=== PATIENT | male | born 1970 | race Caucasian/White ===

== ENCOUNTER 2018-02-01 18:56 | Observation (INO) | payer OTHER ==
[~2018-02-01] VITALS: Ht 175.3 cm; Wt 95.3 kg
[~2018-02-01 18:56] MED LIST: ATORVASTATIN CA80 M1 PO; AUGMENTIN 875-1 EACH PO; BAYER CHEWABLE81 MG PO; BRILINTA90 M1 PO; CIPROFLOXACIN1 EACH; CYCLOBENZAPRINE10 M1 PO; IBUPROFEN800 M1 PO; KEFLEX500 M1 PO; METOPROLOL SUCC50 M2 PO; NASONEX17 GM NASB
--- NOTE | 2018-02-01 19:11 | ED CARDIAC/CP/PALPITATIONS ---
History of Present Illness General Chief Complaint: Chest Pain Stated Complaint: NECK AND CHEST PAIN Source: patient Exam Limitations: no limitations Vital Signs & Intake/Output Vital Signs & Intake/Output Vital Signs Date Time Temp Pulse Resp B/P B/P Pulse O2 O2 Flow FiO2 Mean Ox Delivery Rate 02/01 2050 64 18 142/98 97 Room Air Room Air 02/01 1903 98.3 72 18 116/74 97 Room Air Allergies Coded Allergies: NO KNOWN ALLERGIES (06/25/16) Reconcile Medications Amoxicillin/Potassium Clav (Augmentin 875-125 Tablet) 875 MG-125 MG TABLET 1 TAB PO BID otitis media Aspirin (Bari Chewable Aspirin) 81 MG TAB.CHEW 1 TAB PO DAILY HEART ( Reported) Atorvastatin Calcium 80 MG TABLET 1 TAB PO DAILY CHOLESTEROL (Reported) Ciprofloxacin HCl 0.2 % [place] EAR (Reported) Cyclobenzaprine HCl 10 MG TABLET 1 TAB PO TID PRN muscle strain Metoprolol Succinate 50 MG TAB.ER.24H 1 TAB PO DAILY HEART (Reported) Mometasone Furoate (Nasonex) 50 MCG SPRAY.PUMP 2 SPRAY NASB DAILY otitis Ticagrelor (Brilinta) 90 MG TABLET 1 TAB PO BID BLOOD THINNER (Reported) Triage Note: 47 YO MALE TO TRIAGE C/O PAIN ACROSS BILATERAL UPPER CHEST ON/OFF SINCE YESTERDAY. STATES HX OF [place]. STATES +SOB, +NAUSEA. DENIES ABD PAIN. EKG COMPELTED ON ARRIVAL. Triage Nurses Notes Reviewed? yes Onset: Gradual Duration: day(s): Timing: recent history Quality/Severity: moderate Location: central Radiation: no radiation Activities at Onset: none Prior Chest Pain/Card Workup: cardiac cath, heart attack HPI: 47 YO GENTLEMAN h/o [place] 16 months ago, several stents at [facility], presents with intermittent chest pain. He notes, "I had my first episode yesterday morning, lasted about 20 minutes.... and then this evening, I had several episodes... maybe each would last 3-4 minutes.... I felt it in my jaw." At it's worse: 03/14. At present: 010 He notes no dyspnea, diaphoresis, shortness of breath, syncopal symptoms. Past History Travel History Traveled to [place] past 21 day No Medical History Any Pertinent Medical History? see below for history Neurological: NONE EENT: NONE Cardiovascular: hyperlipidemia, myocardial infarction Respiratory: NONE Gastrointestinal: NONE Hepatic: NONE Renal: NONE Musculoskeletal: NONE Psychiatric: NONE Endocrine: NONE Blood Disorders: NONE Cancer(s): NONE COPYMAN/Reproductive: NONE Tetanus Vaccine: 06/25/16 Surgical History Surgical History: cardiac stents Psychosocial History What is your primary language Khmer Tobacco Use: Never used Family History Hx Contributory? No Review of Systems Review of Systems Constitutional: Reports: no symptoms. EENTM: Reports: no symptoms. Respiratory: Reports: no symptoms. Cardiovascular: Reports: no symptoms. GI: Reports: no symptoms. Genitourinary: Reports: no symptoms. Musculoskeletal: Reports: no symptoms. Skin: Reports: no symptoms. Neurological/Psychological: Reports: no symptoms. Hematologic/Endocrine: Reports: no symptoms. Immunologic/Allergic: Reports: no symptoms. All Other Systems: Reviewed and Negative Physical Exam Physical Exam General Appearance: well developed/nourished, no apparent distress Head: atraumatic, normal appearance Eyes: Bilateral: normal appearance. Ears, Nose, Throat: normal pharynx, normal ENT inspection Neck: normal inspection, supple, full range of motion Respiratory: normal breath sounds, no respiratory distress, quiet respiration, lungs clear Cardiovascular: regular rate/rhythm Gastrointestinal: normal bowel sounds, soft, non-tender, no organomegaly Back: normal inspection, normal range of motion Extremities: normal inspection, normal capillary refill, normal range of motion, no edema Neurologic/Psych: no motor/sensory deficits, awake, alert, oriented x 3 Skin: intact, normal color, warm/dry Core Measures ACS in differential dx? Yes No ASA d/t aspirin given CVA/TIA Diagnosis No Sepsis Present: No Sepsis Focused Exam Completed? No Progress Differential Diagnosis: AMI, unstable angina Plan of Care: Orders Procedure Date/time Status TROPONIN LEVEL 02/02 1912 Complete PARTIAL THROMBOPLASTIN TIME 02/02 1912 Complete PROTHROMBIN TIME 02/02 1912 Complete LIPASE 02/02 1912 Complete HEPATIC FUNCTION PANEL 02/02 1912 Complete D-DIMER 02/02 1912 Complete CBC WITHOUT DIFFERENTIAL 02/02 1912 Complete BASIC METABOLIC PANEL 02/02 1912 Complete AMYLASE 02/02 1912 Complete EKG 02/01 185 Active Current Medications Sig/Shin Start time Last Medication Dose Stop Time Status Admin Acetaminophen 650 MG ONCE ONE 02/01 2045 CAN (Tylenol) 02/01 2046 Laboratory Tests 03/30/18 1938: Anion Gap 11, Estimated GFR > 60, BUN/Creatinine Ratio 17.5, Glucose 100 H, Calcium 9.4, Total Bilirubin 0.6, Direct Bilirubin 0.4, AST 31, ALT 53, Alkaline Phosphatase 87, Troponin I 0.04, Total Protein 7.8, Albumin 4.4, Amylase 36, Lipase 73, PT 11.9, INR 1.09, APTT 29, D-Dimer High Sensitivty < 200, CBC w Diff NO MAN DIFF REQ, RBC 5.11, MCV 88.7, MCH 29.9, MCHC 33.7, RDW 13.8, MPV 7.2 L, Gran % 56.1, Lymphocytes % 30.5, Monocytes % 11.4 H, Eosinophils % 1.4, Basophils % 0.6, Absolute Granulocytes 3.7, Absolute Lymphocytes 2.0, Absolute Monocytes 0.8 H, Absolute Eosinophils 0.1, Absolute Basophils 0 Diagnostic Imaging: Viewed by Me: Radiology Read. Discussed w/RAD: Radiology Read. CXR Impression: PATIENT: ESTEFANÍA GALLAGHER PRESENT AGE : 47 PATIENT ACCOUNT NO: [id number] : 70 LOCATION: [facility] ORDERING PHYSICIAN: [place] MD SERVICE DATE: 02/01/18 EXAM TYPE: RAD - XRY-PORTABLE CHEST XRAY EXAMINATION: XR PORTABLE CHEST CLINICAL INFORMATION: Chest pain. COMPARISON: No relevant prior imaging. TECHNIQUE: Portable frontal view of the chest was obtained. FINDINGS: Lungs are well- expanded. There is no focal consolidative disease, pleural effusion, or pneumothorax. The cardiac silhouette and upper mediastinal contours are normal. No acute osseous finding. IMPRESSION: Unremarkable chest radiograph. No consolidative disease or effusion. DICTATED BY: Germán Jang MD DATE/TIME DICTATED:02/01/181958 AUTOMATIC CLIPPER:LAUREN DATE/TIME TRANSCRIBED:1958 CONFIDENTIAL, DO NOT COPY WITHOUT APPROPRIATE AUTHORIZATION. < Electronically signed in Other Vendor System> SIGNED BY: Germán Jang MD 02/01/182002 Initial ED EKG: normal axis, normal intervals, normal p-waves, normal QRS complex, normal sinus rhythm Departure Departure Disposition: STILL A PATIENT Condition: Stable Clinical Impression Primary Impression: Chest pain Referrals: Unknown (PCP/Family) Departure Forms: Customer Survey General Discharge Information Comments 02/01/18, 8:50.... discussed with dr. elias. pt with prior [place], s/p stents, merits observation for rule out and cards eval. [facility] Non-ED OBS Care Area Rationale for Observation: My rational for observation is as follows . pt with chest pain, prior history of [place] w/ stents, chest pain free in ED... merits monitoring, serial troponins/ekg and cards eval in AM. Critical Care Note Critical Care Note Critical Care Time: non-applicable
[2018-02-01 19:47] LABS: ABSOLUTE BASOPHIL COUNT 0 /CUMM (0.0-0.2); ABSOLUTE EOSINOPHIL COUNT 0.1 /CUMM (0.0-0.7); ABSOLUTE GRANULOCYTE CT 3.7 /CUMM (1.4-6.5); ABSOLUTE MONOCYTE COUNT 0.8 /CUMM (0.10-0.60); BASOPHIL % 0.6 % (0.0-2.0); EOSINOPHIL % 1.4 % (0-5); GRANULOCYTE % 56.1 % (42.2-75.2); HEMATOCRIT 45.4 % (42-52); MEAN CORPUSCULAR HGB 29.9 PG (27.0-31.0); MEAN CORPUSCULAR HGB CONC 33.7 G/DL (33.0-37.0); MEAN CORPUSCULAR VOLUME 88.7 FL (80.0-94.0); MEAN PLATELET VOLUME 7.2 FL (7.4-10.4); PLATELET COUNT 239 /CUMM (130-400); RBC DISTRIBUTION WIDTH 13.8 % (11.5-14.5); RED BLOOD CELL CT 5.11 /CUMM (4.70-6.10); WHITE BLOOD CELL COUNT 6.7 /CUMM (4.8-10.8)
[2018-02-01 19:55] LABS: PT 11.9 SEC (9.4-12.5); PTT 29 SEC (25-37)
--- NOTE | 2018-02-01 20:03 | RADIOLOGY REPORT ---
EXAMINATION: XR PORTABLE CHEST CLINICAL INFORMATION: Chest pain. COMPARISON: No relevant prior imaging. TECHNIQUE: Portable frontal view of the chest was obtained. FINDINGS: Lungs are well-expanded. There is no focal consolidative disease, pleural effusion, or pneumothorax. The cardiac silhouette and upper mediastinal contours are normal. No acute osseous finding. IMPRESSION: Unremarkable chest radiograph. No consolidative disease or effusion.
[2018-02-01] MEDS ORDERED: NIZORAL120 ML TOP (21:05)
[2018-02-01] MEDS ORDERED: ATORVASTATIN CA40 M1 PO (21:05)
--- NOTE | 2018-02-01 22:13 | History & Physical ---
Daniel PHILIPPE,Lilli 02/01/18 2212: General Information and HPI MD Statement: I have seen and personally examined ESTEFANÍA GALLAGHER and documented this H&P. The patient is a 47 year old M who presented with a patient stated chief complaint of [Chest pain]. Source of Information: patient Exam Limitations: no limitations History of Present Illness: 47 years old male with PMH of HLD , [place] S/P cardiac stent on 10/20 at [facility] comes in complaining of chest discomfort. 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 He also reported feeling tired, associated with nausea, mild shortness of breath and cough. At first he thought he is having an anxiety attack but later on decided to come to the hospital because of his cardiac history. Patient mentioned that he had been undergoing many stressors recently since hebought a new house . denies dizziness, palpitation, lightheadedness, vomiting, diarrhea, runny nose or fever Of note patient has history of MO on 10/20 when he presented to [facility] and was transferred to [facility] when he got 2 stents (as per the patient he had over 90% occlusion in two coronary arteries and 60% in the third cornonary artery) His scoring machine operator is Dr. Burden, he last see him on December 2017 when he had an echo, no changes to his medication was recommended during that visit. The patient is an ex-smoker, used to smoke 1.5 packs for 30 years, he quit after the stent placement back on October 2016. Occasional alcohol use, denies any recreational drug use, reports being compliant with his home meds ED course: Vital signs on admission: Blood pressure 142/98, pulse 64, respiratory 18, bedside pulse ox 97 on room air Labs on admission: CBC was normal, PT was normal with sodium 142, potassium 3.9, BUN 14, creatinine 0.8, glucose 100, calcium 9.4, AST 31, AST 53, troponin 0.04, PT 11.9, INR 1.09, d-dimer less than 200 Chest x-ray:Unremarkable chest radiograph. No consolidative disease or effusion. Allergies/Medications Allergies: Coded Allergies: NO KNOWN ALLERGIES (06/25/16) Home Med list Aspirin (Bari Chewable Aspirin) 81 MG TAB.CHEW 1 TAB PO DAILY HEART ( Reported) Atorvastatin Calcium 40 MG TABLET 1 TAB PO DAILY CHOLESTEROL (Reported) Ketoconazole (Nizoral) 2 % SHAMPOO 1 HENRIQUE TOP Sunday SCALP ( Reported) Metoprolol Succinate 50 MG TAB.ER.24H 1 TAB PO DAILY HEART (Reported) Ticagrelor (Brilinta) 90 MG TABLET 1 TAB PO BID BLOOD THINNER (Reported) Past History Travel History Traveled to [place] past 21 day No Medical History Blood Transfusion Hx: No Neurological: NONE EENT: NONE Cardiovascular: hyperlipidemia, myocardial infarction Respiratory: NONE Gastrointestinal: NONE Hepatic: NONE Renal: NONE Musculoskeletal: NONE Psychiatric: NONE Endocrine: NONE Blood Disorders: NONE Cancer(s): NONE CLIENT LIAISON/Reproductive: NONE Tetanus Vaccine: 06/25/16 Surgical History Surgical History: cardiac stents Past Family/Social History Family History Relations & Conditions if any Relation not specified for: *No pertinent family history Psychosocial History Smoking Status: Former Smoker Review of Systems Review of Systems Constitutional: Reports: malaise, weakness. Denies: chills, diaphoresis, fever. Cardiovascular: Reports: chest pain. Denies: edema, orthopena, palpitations, peripheral edema, syncope. Respiratory: Reports: cough. Denies: hemoptysis, orthopnea, short of breath, sputum production, stridor. GI: Reports: nausea. Denies: abdominal pain, bloating, constipation, diarrhea, distention, bloody stool, changes in stool, vomiting. Genitourinary: Denies: no symptoms. Musculoskeletal: Denies: no symptoms. Skin: Denies: no symptoms. Neurological/Psychological: Denies: no symptoms. Exam & Diagnostic Data Last 24 Hrs of Vital Signs/I&O Vital Signs Date Time Temp Pulse Resp B/P B/P Pulse O2 O2 Flow FiO2 Mean Ox Delivery Rate 02/01 2050 64 18 142/98 97 Room Air Room Air 02/01 1903 98.3 72 18 116/74 97 Room Air Physical Exam General Appearance Alert, Oriented X3, Cooperative, No Acute Distress HEENT Atraumatic, PERRLA, EOMI, Mucous Membr. moist/pink Neck Supple, No JVD Cardiovascular Normal S1, Normal S2, No Murmurs, no focal ternderness on chest palpation Lungs Clear to Auscultation Abdomen Normal Bowel Sounds, Soft, No Tenderness Neurological Normal Speech, Strength at 5/5 X4 Ext, Normal Tone, Sensation Intact, Cranial Nerves 3-12 NL Extremities No Clubbing, No Cyanosis, No Edema Vascular Normal Pulses Last 24 Hrs of Labs/[place]: Laboratory Tests 02/01/18 1938: Anion Gap 11, Estimated GFR > 60, BUN/Creatinine Ratio 17.5, Glucose 100 H, Calcium 9.4, Total Bilirubin 0.6, Direct Bilirubin 0.4, AST 31, ALT 53, Alkaline Phosphatase 87, Troponin I 0.04, Total Protein 7.8, Albumin 4.4, Amylase 36, Lipase 73, PT 11.9, INR 1.09, APTT 29, D-Dimer High Sensitivty < 200, CBC w Diff NO MAN DIFF REQ, RBC 5.11, MCV 88.7, MCH 29.9, MCHC 33.7, RDW 13.8, MPV 7.2 L, Gran % 56.1, Lymphocytes % 30.5, Monocytes % 11.4 H, Eosinophils % 1.4, Basophils % 0.6, Absolute Granulocytes 3.7, Absolute Lymphocytes 2.0, Absolute Monocytes 0.8 H, Absolute Eosinophils 0.1, Absolute Basophils 0 02/01/18 0100: Troponin I Cancelled Diagnostic Data EKG Results Normal sinus rhythm, heart rate 69, QTC of 416, SC 148, no STT wave changes CXR Results Unremarkable chest radiograph. No consolidative disease or effusion. Assessment/Plan Assessment: 47 years old male with PMH of HLD , MO S/P cardiac stent on 10/20 at [facility] comes in complaining of chest discomfort. 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 Problem list: History of MO status post 2 stent Hyperlipidemia Observe on telemetry Rule out ACS with serial troponins and EKG Vitals every shift Continue home meds including atorvastatin 80 mg p.o. daily Metoprolol 25 mg twice daily Aspirin 81 p.o. daily starting tomorrow, patient received aspirin 325 in the ED Continue Brillinta 90 mg p.o. twice daily Cardiology consult appreciated Obtain records from [facility] and his scoring machine operator in the a.m. Patient is full code Heart healthy diet DVT prophylaxis with subcutaneous heparin Core Measures/Misc (07/22) Acute Coronary Syndrome ACS Diagnosis: Yes Congestive Heart Failure Congestive Heart Failure Diagnosis No Cerebrovascular Accident CVA/TIA Diagnosis: No VTE (View Protocol) VTE Risk Factors Age>40 No Mechanical VTE Prophylaxis d/t N/A MechProphylax Ordered No VTE Pharm Prophylaxis d/t NA PharmProphylax ordered Sepsis (View protocol) Sepsis Present: No Dale Kraus MD 02/01/18 2331: Attending MD Review Statement Attending Statement Attending MD Statement: examined this patient, discuss w/resident/PA/SENIOR BRANCH MANAGER, agreed w/resident/PA/SENIOR BRANCH MANAGER, discussed with family, reviewed EMR data (avail), discussed with nursing Attending Assessment/Plan: Mr. Gallagher is 47 y/o male of [place] origin who has a history of dyslipidemia, had an acute myocardial infarction status post 2 stents in October 2016 at [facility] comes with complaints of chest uneasiness and discomfort since the evening of the day of presentation. The present symptoms are less in severity compatible acute myocardial infarction he had an similar 2016. Apparently patient had an echocardiogram in December 2017 that that was okay as per the patient. The patient's scoring machine operator is Dr. Burden. Currently he denies any symptoms, doing fine patient was ex smoker has 45-pack- year history. Stopped Smoking after the myocardial infarction. Apparently the patient was told by the scoring machine operator that there were 3 blockages, 2 blockages in the arteries were fixed, however another blockage was on the borderline and the decision was made not to intervene for now. In examination in the ED vitals blood pressure 142/98, heart rate of 64 respiratory rate of 18 and saturating 97% on room air General Appearance Alert, Oriented X3, Cooperative, No Acute Distress Neck Supple, No JVD Cardiovascular Normal S1, Normal S2, No Murmurs Lungs Clear to Auscultation Abdomen Normal Bowel Sounds, Soft, No Tenderness Neurological no focal neurological deficit Extremities No Clubbing, No Cyanosis, No Edema Vascular Normal Pulses Assessment 1. Chest pain - in the setting of known CAD - s/p 2 stents in Oct 2016. EKG and initial cardiac enzymes are unremarkable 2. Dyslipidemia Plan 1. Will be a telemetry observation patient. Obtain records from [facility] including any recent stress test, also the recent echocardiogram from Dr. Burden's office Cardiology consulted. Trend serial cardiac enzymes and EKG's Continue with aspirin, brillinta, beta arsenio DVT prophylaxis - Heparin SC tid Savage Riley MD,Virgilio 02/02/18 0008: Assessment/Plan As Ranked By This Provider Problem List: 1. Chest pain Resident Review Statement Resident Statement: examined this patient, discussed with agriculture intern, agreed with agriculture intern, discussed with family, reviewed EMR data (avail) Other Findings: 47-year-old man with past medical history significant for hypertension, hyperlipidemia, inferior STEMI s/p DIANNA to RCA and LAD 10/18 with residual 70% stenoses in ramus and LCx in 2015, currently on on aspirin 81, ticagrelor 90 BID, atorvastatin 80 and metoprolol XL 50 daily, follows up with Dr. Burden and had an echocardiogram in December 2017 came to emergency department with chief complaint of paroxysmal chest discomfort that stayed for 4 minutes, and feeling tired. Review of system was negative for any sudden acute chest pain, dyspnea on exertion, palpitations, dizziness, nausea, vomiting, diaphoresis. Vitals in emergency department, patient afebrile no tachypnea, no tachycardia, systolic pressure 116-142 and diastolic 74-98, oxygen saturation 97% on room air. Labs significant for no leukocytosis, no significant neck light abnormality, troponin of 0.04, EKG showed sinus rhythm heart rate 66, QTC 416, no axis deviation, d-dimer less than 200. Chest x-ray was negative for any acute cardiopulmonary findings. Patient patient was placed in observation for the management of following problems Chest discomfort rule out ACS Patient's presentation is not typical but given his cardiac history we should have high suspicion of index. Patient has CAD at baseline, but on examination patient does not have any murmur, no signs of congestive heart failure, no acute EKG changes, and negative troponins. HEART score of 2, indicating Moderatly risk for MACE. HAYLEY score of 2. - Hemodynamically stable - Admit to telemetry - Vitals q Shift - Repeat troponins/EKG to rule out ACS - Watch for arrhythmias on telemetry floor - Patient had a recent echocardiogram done in Dr. Burden's office in December 2017 with hold off on ordering another echo - Lipid panel in a.m. -Continue current medications including aspirin, tricagrelor, atorvastatin and metoprolol - No history of cocaine use - Give dinner (Heart Healthy Diet) DVT prophylaxis Patient is on subcutaneous heparin for DVT prophylaxis Diet patient is on heart healthy diet
[2018-02-02 01:21] VITALS: BP 144/98
--- NOTE | 2018-02-02 04:48 | PN-Observation ---
Savage Riley MD,Virgilio 02/02/18 0447: Observation Note Observation Note _ I have personally examined ESTEFANÍA GALLAGHER. him disposition is uncertain at this time. Before a determination can be made, he requires continued observation for the following reasons [rule out ACS]. Assessment/Plan Medical Assessment: 47-year-old man with past medical history significant for hypertension, hyperlipidemia, inferior STEMI s/p DIANNA to RCA and LAD 10/18 with residual 70% stenoses in ramus and LCx in 2015, currently on on aspirin 81, ticagrelor 90 BID, atorvastatin 80 and metoprolol XL 50 daily, follows up with Dr. Burden and had an echocardiogram in December 2017 came to emergency department with chief complaint of paroxysmal chest discomfort that stayed for 4 minutes, and feeling tired. Vitals in emergency department, patient afebrile no tachypnea, no tachycardia, systolic pressure 116-142 and diastolic 74-98, oxygen saturation 97% on room air. Labs significant for no leukocytosis, no significant neck light abnormality, troponin of 0.04 increased to 0.08, EKG showed sinus rhythm heart rate 66, QTC 416, no axis deviation, d-dimer less than 200. Chest x-ray was negative for any acute cardiopulmonary findings. Patient patient was placed in observation for the management of following problems Chest discomfort rule out ACS Patient's presentation is not typical but given his cardiac history we should have high suspicion of index. Patient has CAD at baseline, but on examination patient does not have any murmur, no signs of congestive heart failure, no acute EKG changes, and negative troponins. HEART score of 2, indicating Moderatly risk for MACE. HAYLEY score of 2. No history of cocaine use. Hemodynamically stable. Patient had a recent echocardiogram done in Dr. Burden's office in December 2017 with hold off on ordering another echo. Lipid panel in a.m. Continue current medications including aspirin, tricagrelor, atorvastatin and metoprolol. DVT prophylaxis Patient is on subcutaneous heparin for DVT prophylaxis Diet patient is on heart healthy diet Problem List: 1. Chest pain DVT/Prophylaxis: pharmacological Consulting Request: Consulting Specialty: Cardiology Subjective Follow-up For: Chest discomfort rule out ACS Complaints: no complaints Subjective: Review of system was negative for any sudden acute chest pain, dyspnea on exertion, palpitations, dizziness, nausea, vomiting, diaphoresis. Review of Systems Constitutional: Denies: chills, fever. Cardiovascular: Denies: chest pain, palpitations. Respiratory: Denies: cough, short of breath. Gastrointestinal: Denies: abdominal pain, nausea, vomiting. Genitourinary: Denies: dysuria. Musculoskeletal: Denies: back pain. Objective Last 24 Hrs of Vital Signs/I&O Vital Signs Date Time Temp Pulse Resp B/P B/P Pulse O2 O2 Flow FiO2 Mean Ox Delivery Rate 02/02 0121 98.1 52 20 144/98 97 02/02 0042 135/87 02/02 0029 97.7 81 18 139/104 98 Room Air 02/01 2050 64 18 142/98 97 Room Air Room Air 02/01 1903 98.3 72 18 116/74 97 Room Air Intake & Output 02/02 0800 02/02 0000 02/01 1600 Intake Total Output Total Balance Patient 210 lb Weight Physical Exam General Appearance: Alert, Oriented X3, Cooperative, No Acute Distress HEENT: PERRLA Neck: No JVD Cardiovascular: Regular Rate, Normal S1, Normal S2, no focal ternderness on chest palpation Lungs: Clear to Auscultation, Normal Air Movement Abdomen: Soft, No Tenderness Neurological: Normal Speech, Normal Tone, Sensation Intact Extremities: No Cyanosis, No Edema Vascular: Normal Pulses Current Medications: Current Medications Sig/Shin Start time Last Medication Dose Route Stop Time Status Admin Acetaminophen 650 MG ONCE ONE 02/01 2045 CAN PO 02/01 2046 Aspirin 81 MG DAILY 02/02 1000 AC PO Aspirin 0 .STK-MED ONE 02/01 193 DC PO Aspirin 325 MG ONCE ONE 02/01 1915 DC 02/01 PO 02/01 191 1929 Atorvastatin Calcium 80 MG 1700 02/02 1700 AC PO Atorvastatin Calcium 80 MG DAILY 02/02 0015 DC 02/02 PO 0031 Heparin Sodium 5,000 UNIT Q8 02/01 2351 UNVr (Porcine) SC Metoprolol Tartrate 25 MG BID 02/02 1000 AC PO Ticagrelor 90 MG BID 02/01 2301 AC 02/02 PO 0007 Last 24 Hrs of Labs/Mics: Laboratory Tests 02/02/18 0145: Troponin I 0.08 02/01/18 1938: Anion Gap 11, Estimated GFR > 60, BUN/Creatinine Ratio 17.5, Glucose 100 H, Calcium 9.4, Total Bilirubin 0.6, Direct Bilirubin 0.4, AST 31, ALT 53, Alkaline Phosphatase 87, Troponin I 0.04, Total Protein 7.8, Albumin 4.4, Amylase 36, Lipase 73, PT 11.9, INR 1.09, APTT 29, D-Dimer High Sensitivty < 200, CBC w Diff NO MAN DIFF REQ, RBC 5.11, MCV 88.7, MCH 29.9, MCHC 33.7, RDW 13.8, MPV 7.2 L, Gran % 56.1, Lymphocytes % 30.5, Monocytes % 11.4 H, Eosinophils % 1.4, Basophils % 0.6, Absolute Granulocytes 3.7, Absolute Lymphocytes 2.0, Absolute Monocytes 0.8 H, Absolute Eosinophils 0.1, Absolute Basophils 0 Lexie Nevarez MD 02/02/18 0929: Observation Note Observation Note _ I have personally examined ESTEFANÍA GALLAGHER. him disposition is uncertain at this time. Before a determination can be made, he requires continued observation for the following reasons- suspected ACS or unstable angina. 47-year-old male of [place] descent, ex smoker with hyperlipidemia and hypertension and known CAD status post stents in October 2016. He actively follows with Dr. Burden who is his outpatient otolaryngology rep and takes aspirin, statin, beta arsenio and Brillanta. He is here with this episode of chest pain. He feels like the pain is different and not as severe as his previous [place] however given his obvious risk factors and known CAD he is in observation status to rule out ACS. So far his enzymes have peaked at 0.08 and there is no obvious EKG changes that I could tell. We've called cardiology to see him and the question is risk stratification as an inpatient or outpatient. We'll continue his aspirin and statin beta arsenio and Brillanta and follow closely.
[2018-02-02 06:39] VITALS: BP 110/52
[2018-02-02 08:31] LABS: ABSOLUTE BASOPHIL COUNT 0 /CUMM (0.0-0.2); ABSOLUTE EOSINOPHIL COUNT 0.1 /CUMM (0.0-0.7); ABSOLUTE GRANULOCYTE CT 3.6 /CUMM (1.4-6.5); ABSOLUTE MONOCYTE COUNT 0.8 /CUMM (0.10-0.60); BASOPHIL % 0.6 % (0.0-2.0); EOSINOPHIL % 2.2 % (0-5); GRANULOCYTE % 54.5 % (42.2-75.2); HEMATOCRIT 45.4 % (42-52); MEAN CORPUSCULAR HGB 29.4 PG (27.0-31.0); MEAN CORPUSCULAR HGB CONC 32.9 G/DL (33.0-37.0); MEAN CORPUSCULAR VOLUME 89.3 FL (80.0-94.0); MEAN PLATELET VOLUME 7.3 FL (7.4-10.4); PLATELET COUNT 231 /CUMM (130-400); RBC DISTRIBUTION WIDTH 13.9 % (11.5-14.5); RED BLOOD CELL CT 5.08 /CUMM (4.70-6.10); WHITE BLOOD CELL COUNT 6.6 /CUMM (4.8-10.8)
[2018-02-02 08:43] VITALS: BP 120/60
--- NOTE | 2018-02-02 11:42 | Patient Discharge Instructions ---
Discharge Instructions General Discharge Information You were seen/treated for: Suspected Acute Coronary Syndrome Special Instructions: Please follow up with Dr. Burden in 2-3 days Please follow up with your PCP in 7-10 days Diet Recommended Diet: Heart Healthy Activity Full Activity/No Limits: Yes Acute Coronary Syndrome Inclusion Criteria At DC or during hospital stay patient has or had the following: ACS DIAGNOSIS Yes Discharge Core Measures Meds if any: Prescribed or Continued at Discharge Aspirin Yes Beta-Cam Yes Statin Yes Meds if any: NOT Prescribed or Continued at Discharge Congestive Heart Failure Inclusion Criteria At DC or during hospital stay patient has or had the following: CHF DIAGNOSIS No Discharge Core Measures Meds if any: Prescribed or Continued at Discharge Meds if any: NOT Prescribed or Continued at Discharge Cerebrovascular accident Inclusion Criteria At DC or during hospital stay patient has or had the following: CVA/TIA Diagnosis No Discharge Core Measures Meds if any: Prescribed or Continued at Discharge Meds if any: NOT Prescribed or Continued at Discharge Venous thromboembolism Inclusion Criteria VTE Diagnosis No VTE Type NONE VTE Confirmed by (Test) NONE Discharge Core Measures - Per Current guidelines, there needs to be overlap - treatment for the first 5 days of Warfarin therapy. - If discharged on Warfarin prior to 5 days of - overlap therapy, the patient will need to be - assessed for post discharge needs including - *Post discharge parental anticoagulation - *Warfarin and/or parental anticoagulation education - *Follow up date to check INR post discharge At least 5 days overlap therapy as Inpatient No Meds if any: Prescribed or Continued at Discharge Note: Overlap Therapy is Warfarin and Anticoagulant Meds if any: NOT Prescribed or Continued at Discharge
--- NOTE | 2018-02-02 12:52 | Cons- Cardiology ---
General Information and HPI Consulting Request Date of Consult: 02/02/18 Requested By: Dale Kraus MD Reason for Consult: chest pain Source of Information: patient, old records History of Present Illness: This is a pleasant 47-year-old male with a past medical history coronary artery disease/prior myocardial infarction in 2016 with PCI done at [facility], hyperlipidemia, and prior nicotine use who presented to [facility] with a chief complaint of low level chest discomfort which occurred at rest; was short in duration and not associated with significant shortness of breath or diaphoresis. He feels the symptoms are not similar to the symptoms he experienced prior to his PCI in 2016. Denies any obvious exacerbating or alleviating factors; he has been in his usual state of health with no exertional symptoms or change in exertional tolerance recently. On my interview with him his symptoms had completely resolved. Allergies/Medications Allergies: Coded Allergies: NO KNOWN ALLERGIES (06/25/16) Home Med List: Aspirin (Bari Chewable Aspirin) 81 MG TAB.CHEW 1 TAB PO DAILY HEART ( Reported) Atorvastatin Calcium 40 MG TABLET 1 TAB PO DAILY CHOLESTEROL (Reported) Ketoconazole (Nizoral) 2 % SHAMPOO 1 HENRIQUE TOP Sunday SCALP ( Reported) Metoprolol Succinate 50 MG TAB.ER.24H 1 TAB PO DAILY HEART (Reported) Ticagrelor (Brilinta) 90 MG TABLET 1 TAB PO BID BLOOD THINNER (Reported) Current Medications: Current Medications Sig/Shin Start time Last Medication Dose Route Stop Time Status Admin Acetaminophen 650 MG ONCE ONE 02/01 2045 CAN PO 02/01 2046 Aspirin 81 MG DAILY 02/02 1000 AC 02/02 PO 0843 Aspirin 0 .STK-MED ONE 02/01 1933 DC PO Aspirin 325 MG ONCE ONE 02/01 1915 DC 02/01 PO 02/01 191 1929 Atorvastatin Calcium 80 MG 1700 02/02 1700 AC PO Atorvastatin Calcium 80 MG DAILY 02/02 0015 DC 02/02 PO 0031 Heparin Sodium 5,000 UNIT Q8 02/01 2351 AC (Porcine) SC Metoprolol Tartrate 25 MG BID 02/02 1000 AC 02/02 PO 0843 Ticagrelor 90 MG BID 02/01 2301 AC 02/02 PO 0842 Review of Systems Review of Systems: Review of systems as per HPI. The remainder of a 10 point review of systems was reviewed and was otherwise negative. 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 Surgical History Surgical History: cardiac stents Family History Relations & Conditions If Any: Relation not specified for: *No pertinent family history Psychosocial History Smoking Status: Former Smoker Exam & Diagnostic Data Vital Signs and I&O Vital Signs Date Time Temp Pulse Resp B/P B/P Pulse O2 O2 Flow FiO2 Mean Ox Delivery Rate 02/02 0843 67 120/60 02/02 0639 97.7 63 20 110/52 97 02/02 0121 98.1 52 20 144/98 97 02/02 0042 135/87 02/02 0029 97.7 81 18 139/104 98 Room Air 02/01 2050 64 18 142/98 97 Room Air Room Air 02/01 1903 98.3 72 18 116/74 97 Room Air Intake & Output 02/02 1600 02/02 0800 02/02 0000 02/01 1600 02/01 0800 02/01 0000 Intake Total 400 Output Total Balance 400 Intake, Oral 400 Patient 210 lb 210 lb Weight Physical Exam: General: no apparent distress. Alert. Eyes: No obvious scleral icterus. HEENT: No jugular venous distention or abnormal jugular venous pulsations. Cardiovascular: Normal intensity S1/S2. PMI not grossly displaced. Respiratory: Lungs clear to auscultation bilaterally. Abdomen: Soft, nontender with no guarding or rebound tenderness. Musculoskeletal: No clubbing or cyanosis noted Skin: No obvious rashes or ulcerations. Neurologic: No gross focal deficits noted. Lymph: No gross lymphadenopathy. Labs/[place] Results: Laboratory Tests 02/02 02/02 02/02 0815 0815 0145 Chemistry Sodium (137 - 145 mmol/L) 141 Cancelled Potassium (3.5 - 5.1 mmol/L) 3.8 Cancelled Chloride (98 - 107 mmol/L) 106 Cancelled Carbon Dioxide (22 - 30 mmol/L) 25 Cancelled Anion Gap (5 - 16) 10 Cancelled BUN (9 - 20 mg/dL) 15 Cancelled Creatinine (0.7 - 1.2 mg/dL) 0.7 Cancelled Estimated GFR (>60 ml/min) > 60 BUN/Creatinine Ratio (7 - 25 %) 21.4 Cancelled Troponin I (<0.11 ng/ml) 0.08 0.08 Triglycerides (<150 mg/dL) 265 H Cancelled Cholesterol (< 200 MG/DL) 156 Cancelled LDL Cholesterol, Calc (65 - 129 mg/dL) 81 Cancelled HDL Cholesterol (40 - 60 mg/dL) 22 L Cancelled Cholesterol/HDL Ratio (0.00 - 4.88 %) 7 H Cancelled Hematology CBC w Diff NO MAN DIFF REQ WBC (4.8 - 10.8 /CUMM) 6.6 RBC (4.70 - 6.10 /CUMM) 5.08 Hgb (14.0 - 18.0 G/DL) 14.9 Hct (42 - 52 %) 45.4 MCV (80.0 - 94.0 FL) 89.3 MCH (27.0 - 31.0 PG) 29.4 MCHC (33.0 - 37.0 G/DL) 32.9 L RDW (11.5 - 14.5 %) 13.9 Plt Count (130 - 400 /CUMM) 231 MPV (7.4 - 10.4 FL) 7.3 L Gran % (42.2 - 75.2 %) 54.5 Lymphocytes % (20.5 - 51.1 %) 30.8 Monocytes % (1.7 - 9.3 %) 11.9 H Eosinophils % (0 - 5 %) 2.2 Basophils % (0.0 - 2.0 %) 0.6 Absolute Granulocytes (1.4 - 6.5 /CUMM) 3.6 Absolute Lymphocytes (1.2 - 3.4 /CUMM) 2.0 Absolute Monocytes (0.10 - 0.60 /CUMM) 0.8 H Absolute Eosinophils (0.0 - 0.7 /CUMM) 0.1 Absolute Basophils (0.0 - 0.2 /CUMM) 0 02/01 02/01 1938 0100 Chemistry Sodium (137 - 145 mmol/L) 142 Potassium (3.5 - 5.1 mmol/L) 3.9 Chloride (98 - 107 mmol/L) 102 Carbon Dioxide (22 - 30 mmol/L) 28 Anion Gap (5 - 16) 11 BUN (9 - 20 mg/dL) 14 Creatinine (0.7 - 1.2 mg/dL) 0.8 Estimated GFR (>60 ml/min) > 60 BUN/Creatinine Ratio (7 - 25 %) 17.5 Glucose (65 - 99 mg/dL) 100 H Calcium (8.4 - 10.2 mg/dL) 9.4 Total Bilirubin (0.2 - 1.3 mg/dL) 0.6 Direct Bilirubin (< 0.4 mg/dL) 0.4 AST (17 - 59 U/L) 31 ALT (21 - 72 U/L) 53 Alkaline Phosphatase (< 127 U/L) 87 Troponin I (<0.11 ng/ml) 0.04 Cancelled Total Protein (6.3 - 8.2 g/dL) 7.8 Albumin (3.5 - 5.0 g/dL) 4.4 Amylase (30 - 110 U/L) 36 Lipase (23 - 300 U/L) 73 Coagulation PT (9.4 - 12.5 SEC) 11.9 INR (0.90 - 1.17) 1.09 APTT (25 - 37 SEC) 29 D-Dimer High Sensitivty (0 - 243 ng/ml) < 200 Hematology CBC w Diff NO MAN DIFF REQ WBC (4.8 - 10.8 /CUMM) 6.7 RBC (4.70 - 6.10 /CUMM) 5.11 Hgb (14.0 - 18.0 G/DL) 15.3 Hct (42 - 52 %) 45.4 MCV (80.0 - 94.0 FL) 88.7 MCH (27.0 - 31.0 PG) 29.9 MCHC (33.0 - 37.0 G/DL) 33.7 RDW (11.5 - 14.5 %) 13.8 Plt Count (130 - 400 /CUMM) 239 MPV (7.4 - 10.4 FL) 7.2 L Gran % (42.2 - 75.2 %) 56.1 Lymphocytes % (20.5 - 51.1 %) 30.5 Monocytes % (1.7 - 9.3 %) 11.4 H Eosinophils % (0 - 5 %) 1.4 Basophils % (0.0 - 2.0 %) 0.6 Absolute Granulocytes (1.4 - 6.5 /CUMM) 3.7 Absolute Lymphocytes (1.2 - 3.4 /CUMM) 2.0 Absolute Monocytes (0.10 - 0.60 /CUMM) 0.8 H Absolute Eosinophils (0.0 - 0.7 /CUMM) 0.1 Absolute Basophils (0.0 - 0.2 /CUMM) 0 Diagnostic Data EKG Results Tracing was personally reviewed and shows sinus rhythm at 68 bpm with no obvious ST elevations or depressions CXR Results IMPRESSION: Unremarkable chest radiograph. No consolidative disease or effusion. Other Results Telemetry tracings were personally reviewed and showed sinus rhythm and sinus bradycardia Assessment/Plan Assessment/Plan 1. Chest discomfort without ischemic EKG changes and negative troponins, now resolved 2. History of CAD/ND with prior PCI in 2016 3. History of hyperlipidemia 4. Nicotine dependence in remission The patient reports his symptoms have completely resolved and were not similar to his prior cardiac symptoms in 2016. ECG shows no obvious ischemic changes and serial troponins are negative. We did discuss possible options for further workup including outpatient stress testing versus proceeding to cardiac catheterization and at this time he prefers consideration for repeat outpatient stress testing with Dr. Burden. Advised to follow-up within 1 week of discharge. Continue on his medical regimen for known CAD. He is advised to return to the emergency room via 911 immediately with any new or recurrent symptoms. Case discussed at length with the medical team. Kehinde Campbell MD [facility] Consult Acknowledgment - Thank you for your consult request.
== END 2018-02-02 13:07 ==
LOC: ERH 18:56 → ERHI 21:50 → ENRESERV 02-02 00:29 → 1NO 02-02 00:58 → ENPENDDIS 02-02 11:58 → 1NO 02-02 13:07
PROVIDERS: Pediatrics; Student in an Organized Health Care Education/Training Program
DX: R07.89 Other chest pain (principal); E78.5 Hyperlipidemia, unspecified; I25.10 Atherosclerotic heart disease of native coronary artery without angina pectoris; I25.2 Old myocardial infarction; Z95.5 Presence of coronary angioplasty implant and graft; Z79.82 Long term (current) use of aspirin; Z87.891 Personal history of nicotine dependence
CPT/HCPCS: 6020; 36592; 71045; 82436; 93005; 93010; G0378; J1644; J3490